=== PATIENT | female | born 1950 | race African-American/Black ===

== ENCOUNTER → 2018-09-01 | Day surgery (SDC) | payer MEDICARE, BC ==
[2018-08-26 17:27] LABS: BASOPHILS # (AUTO) 0.1 (0.0-0.1); BASOPHILS % 0.6 % (0.0-1.0); EOSINOPHILS # (AUTO) 0.1 (0.0-0.4); EOSINOPHILS % 1.2 % (0.0-6.0); HEMATOCRIT 44.4 % (34.2-44.1); HEMOGLOBIN 14.4 g/dL (12.0-16.0); LYMPHOCYTES # (AUTO) 2.3 (1.0-3.2); LYMPHOCYTES % 26.4 % (18.0-39.1); MEAN CORPUSCULAR HEMOGLOBIN 30.4 pg (28-32); MEAN CORPUSCULAR HGB CONC 32.4 g/dL (31-35); MEAN CORPUSCULAR VOLUME 93.7 fL (81-99); MONOCYTES # (AUTO) 0.8 (0.2-0.8); NEUTROPHILS # (AUTO) 5.6 (2.1-6.9); NEUTROPHILS % 62.5 % (38.7-80.0); PLATELET COUNT 255 x10e3/uL (140-360); RED BLOOD COUNT 4.74 x10e6/uL (3.6-5.1); RED CELL DISTRIBUTION WIDTH 12.7 % (11.7-14.4)
[2018-08-26 17:46] LABS: ANION GAP 11.8 mmol/L (8-16); BLOOD UREA NITROGEN 15 mg/dL (7-26); BUN/CREATININE RATIO 16 (6-25); CALCIUM 9.4 mg/dL (8.4-10.2); CARBON DIOXIDE 28 mmol/L (22-29); CHLORIDE 102 mmol/L (98-107); CREATININE, SERUM 0.94 mg/dL (0.57-1.11); EST GLOMERULAR FILTRATION RATE > 60 ML/MIN (60-); GLUCOSE 103 mg/dL (74-118); POTASSIUM 3.8 mmol/L (3.5-5.1); SODIUM 138 mmol/L (136-145)
--- NOTE | 2018-08-26 17:47 | Diagnostic Imaging Report ---
EXAM: XR CHEST 2 VIEWS DATE: 08/26/2018 4:58 PM INDICATION: Preoperative, bladder sling surgery COMPARISON: None FINDINGS: Lines and Tubes: None Heart and Mediastinum: No acute cardiomediastinal findings. Tortuous descending thoracic aorta. Lungs and Pleura: Minimal basilar opacities statistically atelectasis or chronic lung changes. There is minimal biapical scarring. There is a nodular density in the right upper chest which may be associated with the posterior right sixth rib. Bones and Soft Tissues: No acute findings. IMPRESSION: 1. No acute cardiopulmonary findings. 2. Nodular density right upper lobe, possibly associated with posterior right sixth rib. Comparison with prior radiographs/CT and/or radiographic follow-up recommended. Signed by: Dr. Morris Mcpherson MD on 08/26/2018 5:44 PM
[~2018-09-01] MED LIST: ASPIR 8181 MG PO; BACITRACIN 50,000 UNIT VIAL ONE; BUPIVACAINE 0.5%/EPI 30 ML SDV INJ ONE; BYSTOLIC5 MG PO; CEFTRIAXONE SOD 1 GM/NS 50 ML 50 ML IV ONE; DESFLURANE 240 ML BTL INH ONE; DEXAMETHASONE SOD PHOS INJ 4 MG/ML VIAL ONE; FENTANYL CITRATE/PF 100MCG/2 ML INJ ONE; KETOROLAC TROMETHAMINE 30 MG/ML VIAL ONE; LABETALOL HCL 5 MG/ML 20ML VIAL ONE; ONDANSETRON HCL INJ 2MG/ML 2ML 2 MG/ML VIAL ONE; PROPOFOL IV EMULSION 10 MG/ML 20 ML VIAL ONE
--- OUTSIDE RECORDS SUMMARY | 2018-09-01 06:50 | XMS REPORT | Clinical Summary ---
Author Author DANIELE [facility] Organization [facility] Address Unknown Phone Unavailable Care Team Providers Care Day [employer] Unit Leader Name Role Phone Kenyon Duque PCP Allergies No Known Allergies Medications End Date Status Medication Sig Dispensed Refills Start Date Active niacin (NIASPAN) 500 MG Take 500 mg 0 CR tablet by mouth nightly. Active nebivolol (BYSTOLIC) 5 MG Take 5 mg by 0 tablet mouth daily. Active amLODIPine (NORVASC) 10 Take 10 mg by 0 MG tablet mouth daily. Active azilsartan Take by 0 med-chlorthalidone mouth. (EDARBYCLOR) 40-25 mg Tab Active Problems Problem Noted Date Osteoarthritis of knees, bilateral 06/30/2017 Social History Date Tobacco Use Types Packs/Day Years Used Never Smoker Smokeless Tobacco: Never Used Alcohol Use Drinks/Week oz/Week Comments Yes rare Sex Assigned at Date Recorded Not on file Industry Job Start Date Occupation Not on file Not on file Not on file Travel End Travel History Travel Start No recent travel history available. Last Filed Vital Signs Not on file Plan of Treatment Not on file Implants Device Identifier Shelf Expiration Date Model / Serial / Lot Implanted Type Area Manufactur er 12/23/2018 6195-1-001 / / [id number] Cement Bone Smplx Hv W Gentam Cement/Carter Left: Knee [place]:ST 6195-1-001 - [id number] ler/Forresti ZAHRA Implanted: Qty: 2 on 06/30/2017 by Jae Abernathy Jr., MD CS 12/23/2018 6195-1-001 / / [id number] Cement Bone Smplx Hv W Gentam Cement/Carter Right: Knee [place]:ST 6195-1-001 - [id number] ler/Adhesi ZAHRA Implanted: Qty: 2 on 06/30/2017 by Jea Abernathy Jr., MD CS 12/23/2021 [id number] / / [id number] Polyethelene Ps Right 10mm Height Joints Right: Knee Demetrio Implanted: Qty: 1 on 06/30/2017 by Jae Keita Jr., MD 11/22/2026 [id number] / / [id number] Fem Cemented Sz 6 L 47-6738-958- Joints Left: Knee DEMETRIO:ZIM - [id number] KENIA US Implanted: Qty: 1 on 06/30/2017 by Jae Keita Jr., MD 03/25/2025 [id number] / / [id number] Patella Cemented 29mm Joints Left: Knee DEMETRIO:ZIM 38-5192-661-29 - [id number] KENIA US Implanted: Qty: 1 on 06/30/2017 by Jae Keita Jr., MD 04/24/2027 [id number] / / [id number] Tib Cemented L Sz E [id number]- Joints Left: Knee DEMETRIO:ZIM - [id number] KENIA US Implanted: Qty: 1 on 06/30/2017 by Jae Keita Jr., MD 12/23/2021 [id number] / / [id number] Vivacit E Polyethylene Articular Joints Left: Knee Demetrio Surface Left 10mm Height Implanted: Qty: 1 on 06/30/2017 by Jae Keita Jr., MD 03/25/2027 [id number] / / [id number] Tib Cemented Sz E R 85-7945-679- Joints Right: Knee DEMETRIO:ZIM - [id number] KENIA US Implanted: Qty: 1 on 06/30/2017 by Jae Keita Jr., MD 11/22/2026 [id number] / / [id number] Fem Cemented Sz 6 R 01-6834-558-02 Joints Right: Knee DEMETRIO:ZIM - [id number] KENIA US Implanted: Qty: 1 on 06/30/2017 by Jae Keita Jr., MD 02/22/2025 [id number] / / [id number] Patella Cemented 32mm Joints Right: Knee DEMETRIO:ZIM 61-9288-590-32 - [id number] KENIA US Implanted: Qty: 1 on 06/30/2017 by Jae Keita Jr., MD Results Not on fileafter 08/31/2017 Insurance Payer Benefit Subscriber ID Type Phone Address Plan / Group MEDICARE MEDICARE A xxxxxxxxxxx Medicare B BLUE CROSS/BLUE SHIELD BCBS xxxxxxxxxxxx PPO [phone] [address] [place] [address] [place] Advance Directives For more information, please contact: [facility] [address] [place] [address] Date Inactivated Comments Code Status Date Activated 07/02/2017 10:06 PM Full Code 06/30/2017 3:23 PM This code status was determined by: Patient 06/30/2017 3:23 PM Full Code 06/30/2017 6:28 AM This code status was determined by: Patient
--- OUTSIDE RECORDS SUMMARY | 2018-09-01 06:51 | XMS REPORT ---
[facility] Address Unknown Phone Unavailable Care Team Providers Care Grey Percher Name Role Phone James HERNANDEZ Unavailable Unavailable RORY SINHA Unavailable Unavailable Problems This patient has no known problems. Allergies, Adverse Reactions, Alerts This patient has no known allergies or adverse reactions. Medications This patient has no known medications. Results Test Description Test Time Test Comments Text Results Atomic Results Result Comments CHEST 2 VIEWS 2018-08-26 17:42:00 [place] [address] Patient Name: JASPER WALDRON MR #: [id number] : 1950 Age/Sex: 68/F Req #: [id number] Adm Physician: Ordered by: NASREEN HERNANDEZ MD Report #: [id number] Location: OR Room/Bed: Procedure: [id number] DX/CHEST 2 VIEWS Exam Date: 08/26/18 Exam Time: 1730 REPORT STATUS: Signed EXAM: XR CHEST 2 VIEWS DATE: 08/26/2018 4:58 PM IND ICATION: Preoperative, bladder sling surgery COMPARISON: None FINDINGS: Lines and Tubes: None Heart and Mediastinum: No acute cardiomediastinal findings. Tortuous descending thoracic aorta. Lungs and Pleura: Minimal basilar opacities statistically atelectasis or chronic lung changes. There is minimal biapical scarring. There is a nodular density in the right upper chest which may be associated with the posterior right sixth rib. Bones and Soft Tissues: No acute findings. IMPRESSION: 1. No acute cardiopulmonary findings. 2. Nodular density right upper lobe, possibly associated with posterior right sixth rib. Comparison with prior radiographs/CT and/or radiographic follow-up recommended. Signed by: Dr. Morris Mcpherson MD on 08/26/2018 5:44 PM Dictated By: MORRIS MCPHERSON MD 43 Transcribed By: ABHISHEK on 08/26/181743 COPY TO: NASREEN HERNANDEZ MD TISSUE EXAM 2017-07-08 10:39:00 Surgical Pathology Report Case: [id number] Authorizing Provider: Jae Sinha Collected: 06/30/2017 0903 MD Rory Ordering Location: [facility] PERIOPERATIVE Received: 06/30/2017 1155 SERVICES Pathologist: Tee Quach MD Specimens: A) - Condyle,Left Knee B) - Condyle,Right Knee A. BONE, LEFT KNEE, ARTHROPLASTY: -OSTEOARTHRITIS AND CHRONIC SYNOVITISB. BONE, RIGHT KNEE, ARTHROPLASTY: -OSTEOARTHRITIS AND CHRONIC SYNOVITIS Signing Pathologist Direct Phone Line: [phone] signed by Tee Quach MD on 07/08/2017 at 10:39 [id number] bilateral kneesA. Left knee condyle. B. Right knee condyle Specimen A: Received fresh labeled "condyle, left knee" are multiple irregular, oquendo-white to yellow-monson portions of soft and osseous tissue to include the tibial plateau and femoral condyles measuring 14.5 x 8.5 x 1.0 cm in aggregate. The articular surfaces are oquendo-white to yellow-monson and display focal areas of eburnation with obliteration of the demarcation between cortical and cancellous bone in these areas on cross section.Section code: A1-A2, bone for decalcification; A3, soft tissue for decalcification.Specimen B: Received fresh labeled "condyle, right knee" are multiple irregular, oquendo-white to yellow-monson portions of soft and osseous tissue to include the tibial plateau and femoral condyles measuring 18.5 x 10.5 x 1.0 cm in aggregate. The articular surfaces are oquendo-white to yellow-monson and display focal areas of eburnation with obliteration of the demarcation between cortical and cancellous bone in these areas on cross section.Section code: B1-B2, bone for decalcification; B3, soft tissue for decalcification. DB/George and B. The sections show reduplication of the tidemark with eburnation and osteophyte formation.The synovial tissue reveals subsynovial edema with chronic inflammation. BASIC METABOLIC PANEL 2017-07-02 11:05:00 SODIUM (BEAKER) (test vhpc=732) 137 meq/L 136-145 POTASSIUM (BEAKER) (test agnv=053) 3.8 meq/L 3.5-5.1 CHLORIDE (BEAKER) (test xerv=990) 104 meq/L 98-107 CO2 (BEAKER) (test lycs=945) 25 meq/L 22-29 BLOOD UREA NITROGEN (BEAKER) (test ttrt=463) 22 mg/dL 7-21 CREATININE (BEAKER) (test uzzp=010) 1.15 mg/dL 0.57-1.25 GLUCOSE RANDOM (BEAKER) (test lfxl=873) 135 mg/dL 70-105 CALCIUM (BEAKER) (test cqvk=542) 9.2 mg/dL 8.4-10.2 EGFR (BEAKER) (test bbgm=2753) 47 mL/min/1.73 sq m ESTIMATED GFR IS NOT ACCURATE CREATININE CLEARANCE IN PREDICTING GLOMERULAR FILTRATION RATE. ESTIMATED GFR IS NOT APPLICABLE FOR DIALYSIS PATIENTS. HEMOGLOBIN AND [id number] 10:11:00* Test Item Value Reference Range Comments HEMOGLOBIN (BEAKER) (test mumx=246) 10.5 GM/DL 11.2-15.7 HEMATOCRIT (BEAKER) (test ejgh=864) 32.5 % 34.1-44.9 HEMOGLOBIN AND [id number] 06:17:00* Test Item Value Reference Range Comments HEMOGLOBIN (BEAKER) (test mqbv=134) 10.8 GM/DL 11.2-15.7 HEMATOCRIT (BEAKER) (test rmvw=960) 36.7 % 34.1-44.9 BASIC METABOLIC [id number] 06:05:00* Test Item Value Reference Range Comments SODIUM (BEAKER) (test nafs=281) 135 meq/L 136-145 POTASSIUM (BEAKER) (test uorr=315) 4.0 meq/L 3.5-5.1 CHLORIDE (BEAKER) (test wvaf=471) 107 meq/L 98-107 CO2 (BEAKER) (test fnoi=082) 20 meq/L 22-29 BLOOD UREA NITROGEN (BEAKER) (test amfk=284) 26 mg/dL 7-21 CREATININE (BEAKER) (test mmir=320) 1.31 mg/dL 0.57-1.25 GLUCOSE RANDOM (BEAKER) (test jyws=010) 143 mg/dL 70-105 CALCIUM (BEAKER) (test dtcq=524) 8.8 mg/dL 8.4-10.2 EGFR (BEAKER) (test lqqp=8397) 40 mL/min/1.73 sq m ESTIMATED GFR IS NOT ACCURATE CREATININE CLEARANCE IN PREDICTING GLOMERULAR FILTRATION RATE. ESTIMATED GFR IS NOT APPLICABLE FOR DIALYSIS PATIENTS. RAD, KNEE, 1 OR 2 VIEWS, [id number] 14:09:00Of operative side while in recovery room.Reason for exam:->post-op in pacuFINAL REPORT Exam:1. Right knee, two images.2. Left knee, two images. HISTORY: Arthroplasty. COMPARISON: None. IMPRESSION:Bilateral knee arthroplasty present. Alignment appears normal. No fractures. Expected postoperative emphysema. Signed: Dereck Mandel Verified Date/Time: 06/30/2017 14:09:05 Reading Location: [facility] Reading Room , KNEE, 1 OR 2 VIEWS, LEFT 2017-06-30 14:09:00Of operative side while in recovery room.Reason for exam:-> post-op in pacuFINAL REPORT Exam:1. Right knee, two images.2. Left knee, two images. HISTORY: Arthroplasty. COMPARISON: None. IMPRESSION:Bilateral knee arthroplasty present. Alignment appears normal. No fractures. Expected postoperative emphysema. Signed: Dereck Mandel Verified Date/Time: 06/30/2017 14:09:05 Reading Location: [facility] Reading Room [id number] 10:47:00* Test Item Value Reference Range Comments HEMOGLOBIN (BEAKER) (test gkjk=236) 13.1 GM/DL 11.2-15.7 PLATELET [id number] 10:47:00* Test Item Value Reference Range Comments PLATELET COUNT (BEAKER) (test tglt=589) 241 K/CU MM 150-450
--- NOTE | 2018-09-01 10:23 | Operative Report ---
DATE OF PROCEDURE: September 01, 2018 PREOPERATIVE DIAGNOSIS: Stress urinary incontinence. POSTOPERATIVE DIAGNOSIS: Stress urinary incontinence. OPERATIVE PROCEDURE PERFORMED: Pubovaginal sling using [place] [employer] Fit Advantage. ANESTHESIA: General anesthesia. ESTIMATED BLOOD LOSS: Minimal. INDICATIONS: Ms. Luann Page is a 68-year-old woman with a long history of stress urinary incontinence, which has failed conservative management. She now presents for definitive surgical management of this problem. PROCEDURE IN DETAIL: The patient was brought into the operating room and placed in the supine position. After administration of general anesthesia, she was placed in the dorsal lithotomy position, and prepped and draped in the usual sterile fashion. A Tucker catheter was placed and the balloon inflated. After infiltration with 0.25% Marcaine with epinephrine, a 1-cm incision was made in the midanterior vaginal mucosa approximately 1 cm proximal to the urethral meatus. Dissection was carried out in and around the periurethral tissues on both sides. The [place] [employer] Fit trocars were placed, first on the right side and subsequently on the left side and allowed to exit the retropubic space. The Tucker catheter was removed and cystoscopy was performed. This revealed no evidence of injury to the bladder or to the urethra. The ureteral orifices were in normal anatomical position and there were no mucosal lesions identified. The bladder was drained and cystoscope and sheath were removed. The sling was pulled anteriorly until there was a 1-cm gap between the posterior urethra and the sling. The vaginal mucosa was then pulled down over the sling and reapproximated closed using a figure-of-8 of 0 Vicryl suture. The tape was cut flush with the anterior abdominal wall, and these skin edges were closed with Dermabond. Vaginal pack was placed. Patient was returned to the supine position and anesthesia was reversed. She was transferred to a bed and taken to the postanesthesia care unit in good condition. Of note, the needle and instrument count were correct at the conclusion of the case. Job#: [id number] KEREN
[2018-09-01 11:05] VITALS: BP 148/88
== END | disposition home or self-care (01) ==
LOC: OR 06:40
PROVIDERS: ATTEND Urology
DX: N39.3 Stress incontinence (female) (male) (principal); I10 Essential (primary) hypertension; F32.9 Major depressive disorder, single episode, unspecified; Z01.810 Encounter for preprocedural cardiovascular examination; Z01.812 Encounter for preprocedural laboratory examination; Z01.818 Encounter for other preprocedural examination; Z79.82 Long term (current) use of aspirin; Z68.33 Body mass index [BMI] 33.0-33.9, adult
CPT/HCPCS: 36415; 57288; 71046; 80048; 85025; 93005; C1771; J0696; J1100; J1885; J2405; J2704; J3490